=== PATIENT | female | born 1935 | race Caucasian/White ===

== ENCOUNTER → 2017-11-15 16:45 | Outpatient (CLI) | payer MEDICARE, OTHER, SELFPAY ==
[2017-11-15 17:50] LABS: ALB/GLOB Ratio 1.1 RATIO (0.9-2.4); AST(SGOT) 15 U/L (15-37); Alanine Aminotransfer ALT/SGPT 22 U/L (13-56); Albumin, Serum 4.2 g/dL (3.2-5.0); Alkaline Phosphatase 86 U/L (45-117); Anion Gap 8 (5-15); BUN 37 mg/dL (7-18); BUN/Creat Ratio 25.9 RATIO (10-20); Calcium,Total 9.3 mg/dL (8.5-10.1); Chloride 108 mmol/L (98-107); Creatinine, Serum 1.43 mg/dL (0.55-1.02); EST Glomerular Filtration Rate 37 mL/min (>60); Est Glom Filt Rate - Afr Amer 45 mL/min (>60); Ferritin 436 ng/mL (8-252); Globulin 3.7 g/dL (2.2-4.2); Glucose 86 mg/dL (74-106); Potassium 4.4 mmol/L (3.5-5.1); Protein, Total 7.9 g/dL (6.4-8.2); Sodium Level 143 mmol/L (136-145)
[2017-11-15 17:55] LABS: Vitamin D,25 Hydroxy 45.7 ng/mL (29.95-100.01)
== END ==
PROVIDERS: Family Provider Family Medicine; PCP Family Medicine; Visit Provider Family Medicine
DX: E55.9 Vitamin D deficiency, unspecified (principal); D50.9 Iron deficiency anemia, unspecified; N18.3 Chronic kidney disease, stage 3 (moderate)
CPT/HCPCS: 36415; 80053; 82306; 82728

== ENCOUNTER → 2018-02-12 08:51 | Outpatient (CLI) | payer MEDICARE, OTHER, SELFPAY ==
[2018-02-12 12:30] LABS: Albumin, Serum 3.7 g/dL (3.2-5.0); BUN 44 mg/dL (7-18); BUN/Creat Ratio 34.4 RATIO (10-20); Chloride 111 mmol/L (98-107); Creatinine, Serum 1.28 mg/dL (0.55-1.02); EST Glomerular Filtration Rate 42 mL/min (>60); Est Glom Filt Rate - Afr Amer 51 mL/min (>60); Ferritin 407 ng/mL (8-252); Glucose 83 mg/dL (74-106); Phosphorus 3.3 mg/dL (2.5-4.9); Potassium 4.2 mmol/L (3.5-5.1); Sodium Level 146 mmol/L (136-145)
== END ==
PROVIDERS: Family Provider Family Medicine; PCP Family Medicine; Visit Provider Family Medicine
DX: N18.3 Chronic kidney disease, stage 3 (moderate) (principal); D63.1 Anemia in chronic kidney disease
CPT/HCPCS: 36415; 80069; 82728

== ENCOUNTER 2018-08-27 07:28 | Outpatient (RCR) | payer MEDICARE, OTHER, SELFPAY ==
[2018-08-27 10:24] LABS: Absolute Lymphocyte Count 1.23 X10^3/ul (0.83-4.51); Basophil# 0.05 X10^3/uL; Basophil% 1.3 % (0-1); Eosinophil# 0.34 X10^3/uL; Eosinophils% 8.8 % (0-5); Hematocrit 32.6 % (37-47); Hemoglobin 10.4 g/dl (12.0-15.0); Lymphocyte # 1.23 X10^3/ul (4.0); Lymphocyte % 31.9 % (19-41); Mean Corp Hgb Conc 31.9 g/gl (32-36); Mean Corpuscular Volume 87.6 fL (81-99); Monocyte# 0.28 X10^3/uL; Monocyte% 7.3 % (0-10); Neutrophil # 1.95 X10^3/uL (2.7-7.7); Neutrophil % 50.7 % (47-70); Platelet Count 190 K/mm3 (150-450); RBC Distribution Width CV 19.7 % (11.6-14.6); RBC Distribution Width SD 64.2 fl (35.1-43.9); Red Blood Count 3.72 M/mm3 (4.2-5.4); White Blood Count 3.9 K/mm3 (4.4-11.0)
[2018-08-27 10:32] LABS: Differential Indicated SCAN CRITERIA MET; POSITIVE COUNT NO; POSITIVE DIFFERENTIAL NO; POSITIVE MORPHOLOGY YES
== END 2018-08-27 08:00 ==
LOC: MTLAB 07:28
PROVIDERS: Family Provider Family Medicine; PCP Family Medicine; Referring Provider Family Medicine; Visit Provider Family Medicine
DX: K29.70 Gastritis, unspecified, without bleeding (principal)
CPT/HCPCS: 36415; 85025

== ENCOUNTER → 2018-09-19 10:35 | Outpatient (CLI) | payer MEDICARE, OTHER, SELFPAY ==
[2018-09-19 13:03] LABS: ALB/GLOB Ratio 1.1 RATIO (0.9-2.4); AST(SGOT) 13 U/L (15-37); Alanine Aminotransfer ALT/SGPT 18 U/L (13-56); Albumin, Serum 4.1 g/dL (3.2-5.0); Alkaline Phosphatase 75 U/L (45-117); Anion Gap 6 (5-15); BUN 45 mg/dL (7-18); BUN/Creat Ratio 28.3 RATIO (10-20); Calcium,Total 9.5 mg/dL (8.5-10.1); Chloride 107 mmol/L (98-107); Creatinine, Serum 1.59 mg/dL (0.55-1.02); EST Glomerular Filtration Rate 33 mL/min (>60); Est Glom Filt Rate - Afr Amer 40 mL/min (>60); Globulin 3.6 g/dL (2.2-4.2); Glucose 91 mg/dL (74-106); Potassium 4.3 mmol/L (3.5-5.1); Protein, Total 7.7 g/dL (6.4-8.2); Sodium Level 138 mmol/L (136-145)
== END ==
PROVIDERS: Family Provider Family Medicine; PCP Family Medicine; Referring Provider Family Medicine; Visit Provider Family Medicine
DX: N18.3 Chronic kidney disease, stage 3 (moderate) (principal)
CPT/HCPCS: 36415; 80053

== ENCOUNTER 2018-11-13 08:15 | Outpatient (RCR) | payer MEDICARE, OTHER, SELFPAY ==
[2018-11-13 10:47] LABS: Absolute Neutrophil Count 2.1 X10^3/uL (2.0-7.7); Basophil# 0.06 X10^3/uL; Basophil% 1.4 % (0-1); Eosinophil# 0.71 X10^3/uL; Eosinophils% 16.1 % (0-5); Hematocrit 33.5 % (37-47); Hemoglobin 10.5 g/dL (12.0-15.0); Lymphocyte % 27.1 % (19-41); Mean Corp Hgb Conc 31.3 g/dL (32-36); Mean Corpuscular Hgb 28.6 pg (27.0-32.0); Mean Corpuscular Volume 91.3 fL (81-99); Mean Platelet Vol. 12.7 fl (6.2-12.0); Monocyte# 0.31 X10^3/uL; NRBC Flagged by Analyzer 0 % (0-5); Neutrophil % 47.5 % (47-70); Platelet Count 233 K/mm3 (150-450); RBC Distribution Width CV 19.2 % (11.6-14.6); RBC Distribution Width SD 64.7 fl (35.1-43.9); Red Blood Count 3.67 M/mm3 (4.2-5.4); White Blood Count 4.4 K/mm3 (4.4-11.0)
== END 2018-11-13 09:15 | disposition home or self-care (01) ==
LOC: MTLAB 08:15
PROVIDERS: Family Provider Family Medicine; PCP Family Medicine; Referring Provider Family Medicine; Visit Provider Family Medicine
DX: K29.70 Gastritis, unspecified, without bleeding (principal)
CPT/HCPCS: 36415; 85025

== ENCOUNTER → 2019-08-07 14:11 | Outpatient (CLI) | payer MEDICARE, OTHER, SELFPAY ==
[2019-08-07 15:30] LABS: Absolute Lymphocyte Count 0.98 X10^3/uL (0.83-4.51); Absolute Neutrophil Count 3.9 X10^3/uL (2.0-7.7); Basophil# 0.03 X10^3/uL; Basophil% 0.5 % (0-1); Eosinophil# 0.33 X10^3/uL; Hematocrit 33.3 % (37-47); Hemoglobin 10.5 g/dL (12.0-15.0); Immature Platelet Fraction 12.3 % (1.0-7.9); Lymphocyte # 0.98 X10^3/ul (4.0); Lymphocyte % 17.8 % (19-41); Mean Corp Hgb Conc 31.5 g/dL (32-36); Mean Corpuscular Hgb 28.8 pg (27.0-32.0); Mean Corpuscular Volume 91.5 fL (81-99); Mean Platelet Vol. 13.9 fl (6.2-12.0); Monocyte% 3.6 % (0-10); NRBC Flagged by Analyzer 0 % (0-5); Neutrophil # 3.93 X10^3/uL (2.7-7.7); Neutrophil % 71.2 % (47-70); POSITIVE MORPHOLOGY YES; Platelet Count 199 K/mm3 (150-450); RBC Distribution Width CV 19.4 % (11.6-14.6); Red Blood Count 3.64 M/mm3 (4.2-5.4); Reticulocyte Count 0.85 % (0.5-1.5); White Blood Count 5.5 K/mm3 (4.4-11.0)
[2019-08-07 15:31] LABS: Differential Indicated SCAN CRITERIA MET
[2019-08-07 16:00] LABS: ALB/GLOB Ratio 1.2 RATIO (0.9-2.4); AST(SGOT) 12 U/L (15-37); Alanine Aminotransfer ALT/SGPT 20 U/L (13-56); Albumin, Serum 4.1 g/dL (3.2-5.0); Alkaline Phosphatase 58 U/L (45-117); Anion Gap 7 (5-15); BUN 49 mg/dL (7-18); BUN/Creat Ratio 27.7 RATIO (10-20); Calcium,Total 9.5 mg/dL (8.5-10.1); Chloride 109 mmol/L (98-107); Cholesterol 119 mg/dL (200); Creatinine, Serum 1.77 mg/dL (0.55-1.02); EST Glomerular Filtration Rate 29 mL/min (>60); Est Glom Filt Rate - Afr Amer 35 mL/min (>60); Ferritin 425 ng/mL (8-252); Globulin 3.4 g/dL (2.2-4.2); Glucose 107 mg/dL (74-106); High Density Lipoprotein 64 mg/dL; Iron 85 ug/dL (50-170); Iron Binding Capacity,Total 235 ug/dL (250-450); Potassium 3.9 mmol/L (3.5-5.1); Protein, Total 7.5 g/dL (6.4-8.2); Sodium Level 144 mmol/L (136-145)
[2019-08-07 16:58] LABS: Anisocytosis 1+; Platelet Estimate ADEQUATE (ADEQ); Red Cell Morphology N CHROM NORMAL (NORM C&C)
[2019-08-07 17:00] LABS: Acanthocytes 1+
[2019-08-08 09:13] LABS: CRP < 2.90 mg/L (0.0-3.0)
[2019-08-08 09:18] LABS: Erythrocyte Sedimentation Rate 8 mm/hr (0-30)
[2019-08-09 14:07] LABS: PROEL- A/G Ratio 1.3 (0.7-1.7); PROEL- Alpha-1 Globulin 0.3 g/dL (0.0-0.4); PROEL- Alpha-2 Globulin 0.9 g/dL (0.4-1.0); PROEL- Gamma Globulin 0.9 g/dL (0.4-1.8)
== END ==
PROVIDERS: PCP Family Medicine; Referring Provider Family Medicine; Visit Provider Family Medicine
DX: I50.32 Chronic diastolic (congestive) heart failure (principal); D50.9 Iron deficiency anemia, unspecified
CPT/HCPCS: 36415; 80053; 82465; 82728; 83540; 83550; 83718; 84165; 85025; 85045; 85652; 86140

== ENCOUNTER → 2019-10-09 08:45 | Outpatient (CLI) | payer MEDICARE, OTHER, SELFPAY ==
[2019-09-26 14:14] VITALS: BMI 27.1
[2019-10-09 10:55] LABS: T4 Total, Thyroxin 11.4 ug/dL (4.8-13.9); Thyroid Stim Hormone (TSH) 1.56 uIU/mL (0.358-3.74)
== END ==
PROVIDERS: PCP Family Medicine; Referring Provider Family Medicine; Visit Provider Internal Medicine Cardiovascular Disease
DX: I50.32 Chronic diastolic (congestive) heart failure (principal)
CPT/HCPCS: 36415; 84436; 84443

== ENCOUNTER → 2019-10-22 07:57 | Outpatient (CLI) | payer MEDICARE, OTHER, SELFPAY ==
[2019-09-26 14:14] VITALS: BMI 27.1
--- NOTE | 2019-10-22 07:59 | ECHOD_ITS ---
Reason For Study: Atrial Fib-Flutter Procedure This was a 2D Doppler, Color Flow transthoracic echocardiogram. The study was technically difficult. Exam performed in department. Left Ventricle Borderline enlarged left ventricle. Moderate global left ventricular systolic dysfunction. The estimated ejection fraction is 30 %. There is evidence of diastolic dysfunction. Right Ventricle Normal RV size. Normal systolic function. Atria Normal left atrium. Normal right atrium. Probable chiari network. No doppler evidence for ASD. Mitral Valve There is mild mitral annular calcification. Normal mitral valve. Moderate (2+) mitral valve insufficiency. Tricuspid Valve Normal tricuspid valve. Moderate (2+) tricuspid valve insufficiency. Right ventricular systolic pressure estimated to be 36 mmHg. Aortic Valve Trisinus/trileaflet aortic valve. Mild focal aortic valve calcification. Trivial aortic valve insufficiency. Pulmonic Valve The pulmonic valve is not well visualized. Trivial pulmonic valve insufficiency. Great Vessels Normal sized aortic root. Pericardium/Pleural No pericardial effusion. MMode/2D Measurements & Calculations LVIDd: 5.0 cm IVSd: 1.3 cm Ao root diam: 2.7 cm LVIDs: 3.6 cm LVPWd: 0.85 cm LA dimension: 4.4 cm RVDd: 3.2 cm FS: 28.5 % LAV(MOD-bp): 53.4 ml LA A4 area: 17.0 cm2 RA A4 area: 15.0 cm2 LAV(MOD-bp) Indexed: 31.9 ml/m2 LAV(MOD-sp2): 58.9 ml LAV(MOD-sp4): 47.5 ml Time Measurements MV dec time: 0.25 sec Doppler Measurements & Calculations MV E max daniel: 93.2 cm/sec Lat Peak E' Daniel: 5.2 cm/sec Med Peak E' Daniel: 4.8 cm/sec MV A max daniel: 129.0 cm/sec E/E' lat: 17.8 E/E' med: 19.5 MV E/A: 0.72 MV V2 max: 151.0 cm/sec MV P1/2t max daniel: 107.2 cm/sec Ao V2 max: 181.9 cm/sec MV max P.1 mmHg MV P1/2t: 81.7 msec Ao max P.2 mmHg MV V2 mean: 78.3 cm/sec MV dec slope: 384.5 cm/sec2 MV mean P.9 mmHg MVA(P1/2t): 2.7 cm2 MV V2 VTI: 37.0 cm LV V1 max: 84.1 cm/sec MR max daniel: 596.4 cm/sec PA V2 max: 78.0 cm/sec LV V1 max P.8 mmHg MR max P.3 mmHg MR mean daniel: 469.1 cm/sec MR mean P.4 mmHg MR VTI: 237.9 cm TR max daniel: 287.6 cm/sec TR max P.1 mmHg Interpretation Summary The study was technically difficult. Borderline enlarged left ventricle. Moderate global left ventricular systolic dysfunction. The estimated ejection fraction is 30 %. Probable chiari network. There is mild mitral annular calcification. Moderate (2+) mitral valve insufficiency. Moderate (2+) tricuspid valve insufficiency. Mild focal aortic valve calcification. Trivial aortic valve insufficiency. Trivial pulmonic valve insufficiency. Right ventricular systolic pressure estimated to be 36 mmHg. There is evidence of diastolic dysfunction. Ordering Physician: Jose Limon Referring Physician: Ayden Fritz Performed By: Santo Mcneil RCS
== END ==
PROVIDERS: PCP Family Medicine; Referring Provider Internal Medicine Cardiovascular Disease; Visit Provider Internal Medicine Cardiovascular Disease
DX: I48.91 Unspecified atrial fibrillation (principal); I48.92 Unspecified atrial flutter; I50.32 Chronic diastolic (congestive) heart failure
CPT/HCPCS: 93306

== ENCOUNTER → 2019-11-12 06:10 | Outpatient (CLI) | payer MEDICARE, OTHER, SELFPAY ==
[2019-09-26 14:14] VITALS: BMI 27.1
--- NOTE | 2019-11-12 13:19 | STRESSREP ---
Stress Test Report Date: 11-12-2019 Procedure: Pharmacologic stress nuclear imaging study Indications: Atrial fibrillation; abnormal ECG; abnormal transthoracic echocardiogram; CHF Consent: Per the patient Procedure: The patient underwent pharmacologic (Regadenoson) evaluation with a peak heart rate of 99 beats per minute (72 %predicted maximal heart rate) and a peak blood pressure of 142/80 mmHg. 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 The peak pharmacologic ECG demonstrated no obvious ECG changes. There was a rare PVC pretest and in recovery. There was no complaint of chest discomfort during pharmacologic infusion or recovery. The examination was discontinued secondary to completion of protocol. Impression: 1. Pharmacologic (Regadenoson) evaluation 2. 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 3. Is a rare PVC pretest and in recovery. 4. Nuclear images pending Myocardial perfusion imaging study: Technique: The patient was injected with 11.9 millicuries of technetium 99m Cardiolite and subsequently rest SPECT Cardiolite nuclear imaging was obtained in the horizontal long, vertical long, and short axis views. The patient underwent pharmacologic (Regadenoson) evaluation with a peak heart rate of 99 beats per minute (72 % percent predicted maximal heart rate) and a peak blood pressure of 142/80 mmHg. The patient was injected with 33.1 millicuries of technetium 99m Cardiolite and subsequently stress SPECT Cardiolite nuclear imaging was obtained in the horizontal long, vertical long, and short axis views. A gated Cardiolite study at peak stress was obtained. Interpretation: Rest and stress SPECT Cardiolite nuclear imaging status post realignment, normalization, and attenuation correction demonstrate diminished absence of myocardial perfusion/tracer uptake in the apical areas without significant change between rest and stress. There is diminished end systolic thickening and brightening in the mid to distal anterior, anteroseptal, lateral, inferior, and apical segments. The gated Cardiolite study demonstrates diminished myocardial thickening and inward wall motion in the aforementioned areas. The reported LVEF is 36 %. Impression: 1. Rest and stress SPECT Cardiolite nuclear imaging demonstrate myocardial perfusion changes potentially compatible with an area of previous myocardial injury/infarction involving the apical regions with no myocardial perfusion changes considered diagnostic for associated stress-induced myocardial ischemia. 2. The gated Cardiolite study reports an LVEF of 36 %. This note was generated with [employer] dictation software. It may contain incorrect words, spelling, and punctuation that were not noted in checking the note before signing.
== END ==
PROVIDERS: PCP Family Medicine; Referring Provider Internal Medicine Cardiovascular Disease; Visit Provider Internal Medicine Cardiovascular Disease
DX: R93.1 Abnormal findings on diagnostic imaging of heart and coronary circulation (principal); I50.32 Chronic diastolic (congestive) heart failure; I45.10 Unspecified right bundle-branch block; I48.91 Unspecified atrial fibrillation
CPT/HCPCS: 78452; 93017; A9500; A4216; J2785

== ENCOUNTER → 2019-11-14 12:55 | Outpatient (CLI) | payer MEDICARE, OTHER, SELFPAY ==
[2019-09-26 14:14] VITALS: BMI 27.1
--- NOTE | 2019-11-14 13:07 | RAD_ITS ---
STUDY: X-RAY CHEST REASON FOR EXAM: Female, 84 years old. retirement use amiodarone, no current chest complaints TECHNIQUE: PA and lateral views of the chest. COMPARISON: Prior study of 08/27/2012 FINDINGS: The lungs are clear and expanded. There is a small calcified granuloma of the left midlung field. There is no demonstrated pleural abnormality. There is borderline cardiomegaly. Normal mediastinum and sharon. Normal visualized pulmonary arteries. There are calcified plaques of the aortic arch. Normal visualized thoracic spine. Normal visualized ribs, clavicles, and shoulders. There is no demonstrated abnormality of the visualized soft tissue structures of the upper abdomen. RAD/Chest PA and Lateral IMPRESSION: Borderline heart size. Small calcified granuloma of the left midlung field. Calcified plaques of the aortic arch. No acute cardiopulmonary disease process is seen. Findings are similar to the previous study. Electronically Signed: Oscar Pugh MD at 23:57 EDT , Service support ,
--- NOTE | 2019-11-15 12:33 | PFT ---
INTRODUCTION: The patient is an 84-year-old female that presents for pulmonary function studies due to high risk medication use. Respiratory therapy reports good patient effort. Bronchodilators were used during testing. INTERPRETATION: Forced expiration spirometry demonstrates no evidence of a large airways obstructive ventilatory defect. There was no significant response to aerosolized bronchodilators, based upon strict ATS criteria. Spirograms are of fair quality and plateau normally. Body plethysmography was performed and reveals lung volumes to be within normal limits. Diffusing capacity by single breath CO is also within normal limits. IMPRESSION: Grossly normal pulmonary function studies.
== END ==
PROVIDERS: PCP Family Medicine; Referring Provider Internal Medicine Cardiovascular Disease; Visit Provider Internal Medicine Cardiovascular Disease
DX: I50.32 Chronic diastolic (congestive) heart failure (principal); I48.91 Unspecified atrial fibrillation; Z79.899 Other long term (current) drug therapy
CPT/HCPCS: 71046; 94060; 94726; 94729

== ENCOUNTER → 2019-12-05 10:35 | Outpatient (CLI) | payer MEDICARE, OTHER, SELFPAY ==
[2019-09-26 14:14] VITALS: BMI 27.1
[2019-12-05 12:05] LABS: Anion Gap 8 (5-15); BUN 40 mg/dL (7-18); Calcium,Total 9.6 mg/dL (8.5-10.1); Chloride 111 mmol/L (98-107); Creatinine, Serum 2.66 mg/dL (0.55-1.02); EST Glomerular Filtration Rate 18 mL/min (>60); Est Glom Filt Rate - Afr Amer 22 mL/min (>60); Glucose 101 mg/dL (74-106); Potassium 4.4 mmol/L (3.5-5.1); Sodium Level 142 mmol/L (136-145)
== END ==
PROVIDERS: PCP Family Medicine; Referring Provider Family Medicine; Visit Provider Internal Medicine Cardiovascular Disease
DX: I50.32 Chronic diastolic (congestive) heart failure (principal); I48.91 Unspecified atrial fibrillation
CPT/HCPCS: 36415; 80048

== ENCOUNTER → 2019-12-11 09:15 | Outpatient (CLI) | payer MEDICARE, OTHER, SELFPAY ==
[2019-09-26 14:14] VITALS: BMI 27.1
[2019-12-11 12:51] LABS: Erythrocyte Sedimentation Rate 22 mm/hr (0-30)
[2019-12-12 20:07] LABS: PROEL- A/G Ratio 1.2 (0.7-1.7); PROEL- Albumin 3.7 g/dL (2.9-4.4); PROEL- Alpha-1 Globulin 0.4 g/dL (0.0-0.4); PROEL- Beta Globulin 0.9 g/dL (0.7-1.3); PROEL- Gamma Globulin 0.7 g/dL (0.4-1.8); PROEL- Globulin, Total 3.1 g/dL (2.2-3.9); PROEL- TOTAL PROTEIN 6.8 g/dL (6.0-8.5)
== END ==
PROVIDERS: PCP Family Medicine; Referring Provider Family Medicine; Visit Provider Family Medicine
DX: R79.89 Other specified abnormal findings of blood chemistry (principal)
CPT/HCPCS: 36415; 84165; 85652; 86140

== ENCOUNTER → 2019-12-17 11:15 | Outpatient (CLI) | payer MEDICARE, OTHER, SELFPAY ==
[2019-09-26 14:14] VITALS: BMI 27.1
[2019-12-17 15:38] LABS: Hematocrit 30.1 % (37-47); Hemoglobin 9.7 g/dL (12.0-15.0); Mean Corp Hgb Conc 32.2 g/dL (32-36); Mean Corpuscular Hgb 28.4 pg (27.0-32.0); POSITIVE COUNT YES; POSITIVE MORPHOLOGY YES; RBC Distribution Width CV 19.9 % (11.6-14.6); RBC Distribution Width SD 63.9 fl (35.1-43.9); Red Blood Count 3.42 M/mm3 (4.2-5.4); White Blood Count 9.9 K/mm3 (4.4-11.0)
[2019-12-17 16:11] LABS: Differential Indicated MANUAL DIFF; Platelet Count 32 K/mm3 (150-450)
[2019-12-17 16:12] LABS: Eosinophil 1 % (0-5); Lymphocyte 56 % (19-41); Monocyte 5 % (0-10); Neutrophil-Band 6 % (0-5); Neutrophil-Segmented 32 % (47-70); Nucleated Red Bld Cells,Manual 2 % (0-5); Total Cells Counted 100 (MANUAL DIFF)
[2019-12-17 16:13] LABS: Platelet Estimate MKD DEC (ADEQ); Red Cell Morphology NORM C+C NORMAL (NORM C&C)
[2019-12-17 16:15] LABS: Absolute Neutrophil Count 3.8 X10^3/uL (2.0-7.7)
[2019-12-18 12:19] LABS: Pathologist Review Reviewed
== END ==
PROVIDERS: PCP Family Medicine; Referring Provider Family Medicine; Visit Provider Family Medicine
DX: K92.1 Melena (principal); R19.7 Diarrhea, unspecified
CPT/HCPCS: 36415; 85025; 87493; 87506

== ENCOUNTER 2019-12-19 09:43 | Inpatient (IN) | payer MEDICARE, OTHER, SELFPAY ==
[2019-09-26 14:14] VITALS: BMI 27.1
[2019-12-19 09:45] VITALS: BP 139/83; PULSE 87; RESP 17; TEMP 36.4; O2SAT 98; BMI 25.4
--- NOTE | 2019-12-19 10:15 | ED.DCSUM_ITS ---
History of Present Illness Chief Complaint: Abn Labs Detail of Chief Complaint: rising creatinine Informant: Patient, Significant Other, PCP Onset: Weeks - 1 Context: Gradual Onset Quality: malaise/weakness Location: all over Current Severity: Moderate Maximum Severity: Moderate Worsened by: n/a Relieved by: n/a Associated Symptoms: vaginal bleeding, diarrhea Narrative: Patient started having diarrhea around 3 weeks ago. Her PCP ran some tasks that were reportedly negative, including C. difficile, put her on some antidiarrheals which helped. That is improved. No nausea, vomiting, abdominal pain. No fevers or chills. She had been followed by her doctor and her sales and marketing engineer Dr. Augustin, who sent her here today, because she had been having repeat labs since her creatinine had gone from 1.5 last year to 2 last week, she was reevaluated again yesterday and her creatinine went up to 6.3 so she was sent to the emergency department for admission. She does not follow with a graduate assistant athletic trainer for any reason. She has been urinating and actually a little more than usual, but without any pain or hematuria. She was on apixaban for stroke prophylaxis given her atrial fibrillation, and that was discontinued recently because of her vaginal bleeding that has spontaneously occurred for about the past week, and since discontinuing the apixaban, her bleeding is still present but much improved. Dr. Diaz stated that she has ITP and low platelets, based on her platelet count recently, he does not recommend transfusion now, but she may require it if she continues to bleed. - Past Medical History (1) Chronic ITP (idiopathic thrombocytopenic purpura) Status: Chronic (2) Atrial fibrillation Status: Chronic (3) Benign essential HTN Status: Chronic (4) CKD (chronic kidney disease) Status: Chronic (5) Chronic diastolic heart failure Status: Chronic (6) Gastroesophageal reflux disease Status: Chronic Past Medical History - Allergies and Home Meds Allergies/Adverse Reactions: Allergies Penicillins Allergy (Unknown, Verified 12/19/19 09:44) Unknown Sulfa (Sulfonamide Antibiotics) Adverse Reaction (Unknown, Verified 12/19/19 09:44) Unknown Primary Care Physician: Ayden Fritz MD [Primary Care Provider] - Doctors: Joe - matt; Ashly - cardiology Surgical History: herniorrhaphy, carpal tunnel syndrome, vein stripping of the legs Lives: Spouse/ Significant Other Smoking Status: Never smoker Review of Systems General: Reports: Malaise. Denies: Chills, Fever, Sweats Eyes: Denies: Visual changes - bilaterally, Diplopia ENT: Denies: Bilateral ear pain, Rhinorrhea, Sore throat Cardiovascular: Denies: Chest pain, Palpitations Respiratory: Denies: Dyspnea, Cough, Dyspnea on exertion Gastrointestinal: Reports: Diarrhea. Denies: Abdominal pain, Nausea, Vomiting, Melena, Hematochezia Genitourinary: Reports: Frequency, - - vaginal bleeding. Denies: Dysuria, Hematuria Musculoskeletal: Reports: Swelling - chronic both ankles, unchanged. Denies: Myalgias, Back pain, Extremity Pain Skin: Denies: Rash, Wounds Neurological: Denies: Headache, Weakness, Numbness Physical Exam Vital Signs/Narrative: Vital Signs Temp Pulse Resp BP Pulse Ox 12/19/19 09:45 97.6 F L 87 17 139/83 H 98 Inital Vital Signs reviewed: Yes General: Well nourished, Well developed, No Acute Distress Head: Normocephalic, Atraumatic Eyes: Perrl, EOMI ENT: Moist mucous membranes, No rhinorrhea Neck: Supple, Nontender, No lymphadenopathy Cardiovascular: Regular rate, Regular rhythm, Murmur - systolic Respiratory: No distress, CTA bilaterally, Chest nontender Abdomen: Soft, Nontender, Nondistended, Normal bowel sounds. Negative for: Pulsatile mass Back: Nontender, Normal Inspection Extremities: Nontender, Edema - 1+ BLE to midshin, nonpitting, symmetric. Negative for: Calf Tenderness Skin: Normal color, No rash, No Trauma Neurological: Alert, Oriented x3, Cranial nerves II-XII grossly intact, Normal Strength, Normal Sensation, Normal Gait Psychological: Normal affect, Normal Mood Diagnostic/Tx/Re-eval Laboratory Tests 12/19/19 12/19/19 12/19/19 Range/Units 11:15 10:25 10:25 WBC (4.4-11.0) K/mm3 RBC (4.2-5.4) M/mm3 Hgb (12.0-15.0) g/dL Hct (37-47) % MCV (81-99) fL MCH (27.0-32.0) pg MCHC (32-36) g/dL RDW Std Deviation (35.1-43.9) fl RDW Coeff of Brody (11.6-14.6) % Plt Count (150-450) K/mm3 Neut % (Auto) Absolute Neuts (auto) (2.0-7.7) X10^3/uL Absolute Lymphs (auto) (0.83-4.51) X10^3/uL Total Counted (MANUAL DIFF) Neutrophils % (Manual) (47-70) % Lymphocytes % (Manual) (19-41) % Monocytes % (Manual) (0-10) % Eosinophils % (Manual) (0-5) % Basophils % (Manual) (0-1) % Metamyelocytes % (0-1) % Myelocytes % (0-0) Blast Cells % (0-0) % Diff Path Review Atypical Lymphocytes % Platelet Estimate (ADEQ) RBC Morphology (NORM C&C) NORMAL Microcytosis Macrocytosis Acanthocytes (Spur) Sodium 144 (136-145) mmol/L Potassium 3.6 (3.5-5.1) mmol/L Chloride 114 H (98-107) mmol/L Carbon Dioxide 16.0 L (21.0-32.0) mmol/L Anion Gap 14 (5-15) BUN 88 H (7-18) mg/dL Creatinine 7.01 H (0.55-1.02) mg/dL Estim Creat Clear Calc 4.94 ml/min Est GFR (MDRD) Af Amer 7 L (>60) mL/min Est GFR (MDRD) Non-Af 6 L (>60) mL/min BUN/Creatinine Ratio 12.6 (10-20) RATIO Glucose 110 H (74-106) mg/dL Calcium 9.7 (8.5-10.1) mg/dL Total Bilirubin 0.30 (0.20-1.00) mg/dL AST 37 (15-37) U/L ALT 23 (13-56) U/L Alkaline Phosphatase 75 (45-117) U/L Total Protein 7.1 (6.4-8.2) g/dL Albumin 3.6 (3.2-5.0) g/dL Globulin 3.5 (2.2-4.2) g/dL Albumin/Globulin Ratio 1.0 (0.9-2.4) RATIO Urine Color Straw (Yellow) Urine Clarity Cloudy (Clear) Urine pH 5.0 (5.0 - 8.0) Ur Specific Troy 1.015 (1.002-1.030) Urine Protein 100 H (Negative) mg/dl Urine Glucose (UA) Normal (Normal) mg/dl Urine Ketones Negative (Negative) mg/dl Urine Occult Blood 250 H (Negative) /ul Urine Nitrite Positive H (Negative) Urine Bilirubin Negative (Negative) mg/dL Urine Urobilinogen Normal (Normal) mg/dl Ur Leukocyte Esterase 500 H (Negative) /ul Urine RBC > 100 SEEN (0-5) /hpf Urine WBC >100 SEEN (0-5) /hpf Ur Squamous Epith Cells 0-5 SEEN (5-10) /hpf Ur Renal Epithelial Cell 0-5 SEEN (0-5) /hpf Urine Bacteria 4+ (None Seen) /hpf Fine Granular Casts 0-5 SEEN (0-5) /lpf Urine Mucus 0 SEEN (<or=2+) /hpf Blood Type A POSITIVE Antibody Screen NEGATIVE 12/19/19 Range/Units 10:25 WBC 7.7 (4.4-11.0) K/mm3 RBC 3.09 L (4.2-5.4) M/mm3 Hgb 8.7 L (12.0-15.0) g/dL Hct 27.7 L (37-47) % MCV 89.6 (81-99) fL MCH 28.2 (27.0-32.0) pg MCHC 31.4 L (32-36) g/dL RDW Std Deviation 66.0 H (35.1-43.9) fl RDW Coeff of Brody 20.0 H (11.6-14.6) % Plt Count 26 L* (150-450) K/mm3 Neut % (Auto) Not Reportable Absolute Neuts (auto) 2.0 (2.0-7.7) X10^3/uL Absolute Lymphs (auto) 4.39 (0.83-4.51) X10^3/uL Total Counted 100 (MANUAL DIFF) Neutrophils % (Manual) 26 L (47-70) % Lymphocytes % (Manual) 57 H (19-41) % Monocytes % (Manual) 1 (0-10) % Eosinophils % (Manual) 4 (0-5) % Basophils % (Manual) 1 (0-1) % Metamyelocytes % 3 H (0-1) % Myelocytes % 4 H (0-0) Blast Cells % 4 H* (0-0) % Diff Path Review May foll Atypical Lymphocytes 1+ % Platelet Estimate MKD DEC (ADEQ) RBC Morphology N CHROM (NORM C&C) NORMAL Microcytosis 2+ Macrocytosis 1+ Acanthocytes (Spur) 2+ Sodium (136-145) mmol/L Potassium (3.5-5.1) mmol/L Chloride (98-107) mmol/L Carbon Dioxide (21.0-32.0) mmol/L Anion Gap (5-15) BUN (7-18) mg/dL Creatinine (0.55-1.02) mg/dL Estim Creat Clear Calc ml/min Est GFR (MDRD) Af Amer (>60) mL/min Est GFR (MDRD) Non-Af (>60) mL/min BUN/Creatinine Ratio (10-20) RATIO Glucose (74-106) mg/dL Calcium (8.5-10.1) mg/dL Total Bilirubin (0.20-1.00) mg/dL AST (15-37) U/L ALT (13-56) U/L Alkaline Phosphatase (45-117) U/L Total Protein (6.4-8.2) g/dL Albumin (3.2-5.0) g/dL Globulin (2.2-4.2) g/dL Albumin/Globulin Ratio (0.9-2.4) RATIO Urine Color (Yellow) Urine Clarity (Clear) Urine pH (5.0 - 8.0) Ur Specific Troy (1.002-1.030) Urine Protein (Negative) mg/dl Urine Glucose (UA) (Normal) mg/dl Urine Ketones (Negative) mg/dl Urine Occult Blood (Negative) /ul Urine Nitrite (Negative) Urine Bilirubin (Negative) mg/dL Urine Urobilinogen (Normal) mg/dl Ur Leukocyte Esterase (Negative) /ul Urine RBC (0-5) /hpf Urine WBC (0-5) /hpf Ur Squamous Epith Cells (5-10) /hpf Ur Renal Epithelial Cell (0-5) /hpf Urine Bacteria (None Seen) /hpf Fine Granular Casts (0-5) /lpf Urine Mucus (<or=2+) /hpf Blood Type Antibody Screen - Medical Decision Making Patient is clinically and hemodynamically stable here in the emergency department. Labs as above are noted. Urine suspicious for infection so that was cultured she was given an empiric dose of IV Rocephin. She does not need any emergent transfusions at this time, plan is for admission to the hospital for further treatment and evaluation of her renal failure. After discussing with Dr. Marie, he requests an abdominal CT to look at her kidneys, he will follow-up on the results of that so the patient will get the scan and go up to the floor when her bed is ready. ED Disposition - Plan for ED Patient: Disposition: Acute Care Hospital [facility] Diagnosis: Postmenopausal vaginal bleeding, Acute on chronic renal failure, Acute diarrhea, Thrombocytopenia, UTI (urinary tract infection) Referrals: Ayden Fritz MD [Primary Care Provider] -
[2019-12-19 10:30] VITALS: BP 131/65; PULSE 90; RESP 16; O2SAT 97
[2019-12-19] MEDS: 0.9% Normal Saline 1,000 ML 150 ML IV (10:33)
[2019-12-19 10:51] LABS: Hematocrit 27.7 % (37-47); Hemoglobin 8.7 g/dL (12.0-15.0); Mean Corp Hgb Conc 31.4 g/dL (32-36); Mean Corpuscular Hgb 28.2 pg (27.0-32.0); Mean Corpuscular Volume 89.6 fL (81-99); POSITIVE COUNT YES; POSITIVE MORPHOLOGY YES; Red Blood Count 3.09 M/mm3 (4.2-5.4); White Blood Count 7.7 K/mm3 (4.4-11.0)
[2019-12-19 10:54] LABS: Differential Indicated MANUAL DIFF
[2019-12-19 11:02] LABS: AST(SGOT) 37 U/L (15-37); Alanine Aminotransfer ALT/SGPT 23 U/L (13-56); Albumin, Serum 3.6 g/dL (3.2-5.0); Alkaline Phosphatase 75 U/L (45-117); Anion Gap 14 (5-15); BUN 88 mg/dL (7-18); BUN/Creat Ratio 12.6 RATIO (10-20); Calcium,Total 9.7 mg/dL (8.5-10.1); Chloride 114 mmol/L (98-107); Creatinine, Serum 7.01 mg/dL (0.55-1.02); EST Glomerular Filtration Rate 6 mL/min (>60); Est Glom Filt Rate - Afr Amer 7 mL/min (>60); Estimated Creatinine Clearance 4.94 ml/min; Globulin 3.5 g/dL (2.2-4.2); Glucose 110 mg/dL (74-106); Potassium 3.6 mmol/L (3.5-5.1); Protein, Total 7.1 g/dL (6.4-8.2); Sodium Level 144 mmol/L (136-145)
[2019-12-19 11:08] LABS: Platelet Count 26 K/mm3 (150-450)
[2019-12-19 11:12] LABS: Basophil 1 % (0-1); Blast 4 % (0-0); Eosinophil 4 % (0-5); Lymphocyte 57 % (19-41); Metamyelocyte 3 % (0-1); Monocyte 1 % (0-10); Myelocyte 4 (0-0); Neutrophil-Segmented 26 % (47-70); Total Cells Counted 100 (MANUAL DIFF)
--- NOTE | 2019-12-19 11:14 | NURSING ---
Critical PLT level reported to Dr. Zambrano
[2019-12-19 11:16] LABS: Acanthocytes 2+; Macrocytosis 1+; Microcytosis 2+; Platelet Estimate MKD DEC (ADEQ); Red Cell Morphology N CHROM NORMAL (NORM C&C)
[2019-12-19 11:17] LABS: Atypical Lymphocyte 1+ %
[2019-12-19 11:18] LABS: Lymphocyte # 4.39 X10^3/ul (4.0)
[2019-12-19 11:19] LABS: Absolute Lymphocyte Count 4.39 X10^3/uL (0.83-4.51)
[2019-12-19 11:24] LABS: Mucous, Urine 0 SEEN /hpf (<or=2+)
[2019-12-19 11:31] LABS: Color, Urine Straw (Yellow); Glucose, Dipstick Normal (Normal); Ketone-Dipstick Negative (Negative); Leukocyte Esterase-Dipstick 500 /ul (Negative); Nitrite-Dipstick Positive (Negative); Occult Blood-Urine 250 /ul (Negative); Protein-Dipstick 100 mg/dl (Negative); Specific Gravity, Urine 1.015 (1.002-1.030); Urine Bilirubin Dipstick Negative (Negative); Urine Clarity Cloudy (Clear); Urine Urobilinogen Normal (Normal)
[2019-12-19 11:41] LABS: Renal Epithelial Cells 0-5 SEEN /hpf (0-5); Squamous Epithelial Cells - UA 0-5 SEEN /hpf (5-10)
[2019-12-19 11:42] LABS: Red Blood Cells-Urine > 100 SEEN /hpf (0-5)
[2019-12-19 11:44] LABS: Bacteria 4+ /hpf (None Seen); White Blood Cells >100 SEEN /hpf (0-5)
[2019-12-19 11:45] LABS: Fine Granular Cast- Urine 0-5 SEEN /lpf (0-5)
--- NOTE | 2019-12-19 11:58 | NURSING ---
MED SURG TERELETSKY RENAL FAILURE, UTI, ITP
[2019-12-19 12:00] VITALS: BP 128/60; PULSE 86; RESP 18; O2SAT 96
--- NOTE | 2019-12-19 12:07 | US_ITS ---
STUDY: RENAL ULTRASOUND - COMPLETE REASON FOR EXAM: Female, 84 years old. Renal failure TECHNIQUE: Ultrasound evaluation of the kidneys was performed with real-time and static garcia-scale imaging. COMPARISON: None. FINDINGS: RIGHT KIDNEY: Normal location of the right kidney, which is normal in size. The right kidney measures 8.1 cm x 3.4 cm x 3.7 cm. There is a normal cortex of the right kidney. The renal cortex measures 1.1 cm. 2 small intrarenal calculi are seen. The larger measures 3 mm x 4 mm x 3 mm. There are no right renal calculi. There is no right hydronephrosis. DISTAL RIGHT URETER: There is non-visualization of the distal right ureter. There is no demonstrated right ureterovesical junction calculus. There is no demonstrated right ureteral jet. LEFT KIDNEY: Normal location of the left kidney, which is normal in size. The left kidney measures 9.6 cm x 2.9 cm x 3.3 cm. There is a normal cortex of the left kidney. The renal cortex measures 1.4 cm. There is no left renal mass or cyst. There are no left renal calculi. There is no left hydronephrosis. DISTAL LEFT URETER: There is non-visualization of the distal left ureter. There is no demonstrated left ureterovesical junction calculus. There is no demonstrated left ureteral jet. BLADDER: The distended urinary bladder has a volume of 68 ml. There is a normal wall thickness of the distended urinary bladder. There is no demonstrated mass within the urinary bladder. There are no demonstrated bladder calculi. Incidental note is made of cholelithiasis. Calcified splenic granulomas. US/Kidney and Bladder IMPRESSION: There are 2 small right intrarenal calculi. Electronically Signed: Thom Madrigal, at 13:39 EDT , Service support ,
[2019-12-19 12:57] VITALS: BP 128/60; PULSE 82; RESP 18; TEMP 36.6; O2SAT 98
[2019-12-19] MEDS: Ceftriaxone 1 GM/50 ML BAG IV (12:57)
[2019-12-19 13:27] VITALS: BMI 25.2
--- NOTE | 2019-12-19 15:53 | PCM.HP.STD ---
Problem List (1) Acute on chronic renal failure Status: Acute (2) Chronic ITP (idiopathic thrombocytopenic purpura) Status: Chronic (3) Chronic diastolic heart failure Status: Chronic (4) CKD (chronic kidney disease) Status: Chronic (5) Atrial fibrillation Status: Chronic (6) Gastroesophageal reflux disease Status: Chronic (7) Benign essential HTN Status: Chronic History of Present Illness Date of Admission: 12/19/19 Chief Complaint: abnormal labs The patient is a 84 year old F with history of atrial fibrillation, ITP, hypertension, hyperlipidemia who presents to the ER with abnormal labs - abnormal kidney function. Dr. Diaz sent her, whom treats her for ITP. She has markedly elevated Creatine. She reports she has had diarrhea every morning for about 2 weeks - watery no blood. Today was the first morning she did not have watery diarrhea. No abdominal pain. She appears to also have a UTI per UA, and does admit that she has had increased urinary frequency. She denies dysuria. She denies flank pain. No fever/chills. also of note she was recently taken off eliquis which she takes for afib due to vaingal bleeding which has since resolved. [] Past Medical History Past Medical History (Chronic Problems): Chronic Problems (Last Updated 09/25/19 @ 18:08 by Kimberly Blackmon) Chronic ITP (idiopathic thrombocytopenic purpura) (Chronic) Chronic diastolic heart failure (Chronic) CKD (chronic kidney disease) (Chronic) Atrial fibrillation (Chronic) Gastroesophageal reflux disease (Chronic) Benign essential HTN (Chronic) Medical History: Medical History (Last Updated 09/25/19 @ 18:08 by Kimberly Blackmon) Chronic diastolic heart failure (Chronic) I50.32 CKD (chronic kidney disease) (Chronic) N18.9 Left anterior fascicular block (LAFB) (Acute) I44.4 RBBB (right bundle branch block) (Acute) I45.10 Atrial fibrillation (Chronic) I48.91 Gastroesophageal reflux disease (Chronic) K21.9 Benign essential HTN (Chronic) I10 CVA (cerebral vascular accident) I63.9 Hx of cardiac arrhythmia Z86.79 Uterine prolapse N81.4 Allergies Penicillins Allergy (Unknown, Verified 12/19/19 09:44) Unknown Sulfa (Sulfonamide Antibiotics) Adverse Reaction (Unknown, Verified 12/19/19 09:44) Unknown levaquin Allergy (Uncoded 12/19/19 14:08) PT UNSURE OF REACTION Home Medications: Ambulatory Orders Medication Instructions Recorded amiodarone 200 mg tablet 100 mg PO DAILY tab 09/26/19 atorvastatin 20 mg tablet 20 mg PO QHS 09/26/19 benazepril 20 mg tablet 20 mg PO DAILY 09/26/19 cholecalciferol (vitamin D3) 50 50 mcg PO DAILY 09/26/19 mcg (2,000 unit) capsule pyridoxine (vitamin B6) 25 mg 25 mg PO DAILY 09/26/19 tablet furosemide 20 mg tablet 20 mg PO DAILY #30 tab 11/14/19 Surgical History: Surgical History (Last Updated 09/25/19 @ 18:08 by Kimberly Blackmon) History of carpal tunnel surgery Z98.890 History of hernia repair Z98.890, Z87.19 Surgical History: herniorrhaphy, carpal tunnel syndrome, vein stripping of the legs Psychiatric History: No pertinent psych hx SURVEY OPERATIONS DIRECTOR History: No pertinent SURVEY OPERATIONS DIRECTOR history Lives: With Family Smoking Status: Never smoker Tobacco Use: Non-smoker Alcohol: None Drugs: None - *Family History Maternal Family History: Family History (Last Reviewed 12/19/19 @ 16:02 by Phong OAKES, PA) Mother CAD (coronary artery disease) CVA (cerebral vascular accident) Father Hypertension Review of Systems Constitutional: Denies: Chills, Fever, Weight Change HEENT: Denies: Head Aches, Sinus Congestion, Sinus Drainage Cardiovascular: Denies: Chest Pain, Palpitations Respiratory: Denies: Cough, Shortness of Breath, Shortness of breath at rest, Sputum production Gastrointestinal: Reports: Diarrhea. Denies: Abdominal Pain, Nausea, Vomiting Genitourinary: Reports: Frequency. Denies: Dysuria, Incontinence, Urgency Gynecological: Reports: Vaginal bleeding Musculoskeletal: Denies: Joint Pain, Joint Tenderness Skin: Denies: Rash, Wounds Neurological: Denies: Numbness, Tingling, Focal weakness Psychiatric: Denies: Anxiety, Depression, Homicidal Ideations, Suicidal Ideations Hematologic/ Lymphatic: Denies: Easy Bruising, Easy Bleeding VTE Information - Inpt Only VTE Present on Admission: No VTE Mechan Device Prophylaxis: SCD's VTE Pharm Prophylaxis ordered?: No Patient Problems: Active and Suspected Problems (Last Updated 09/25/19 @ 18:08 by Kimberly Blackmon) Postmenopausal vaginal bleeding (Acute) Acute on chronic renal failure (Acute) Acute diarrhea (Acute) Thrombocytopenia (Acute) UTI (urinary tract infection) (Acute) - Physical Exam Vitals/I&O's: Vital Signs Temp Pulse Resp BP Pulse Ox 97.8 F 82 18 128/60 H 98 12/19/19 12:57 12/19/19 12:57 12/19/19 12:57 12/19/19 12:57 12/19/19 12:57 Oxygen Delivery Method Room Air Weight: 142 lb 3.17 oz Body Mass Index (BMI) 25.2 Intake and Output for Last 24 Hours 12/17/19 12/18/19 12/19/19 23:59 23:59 23:59 Intake Total 50 / 50 Balance 50 / 50 General: Alert, Oriented x3, Cooperative HEENT: Atraumatic, PERRLA, EOMI, Normocephalic Neck: Supple, No JVD, Negative Carotid Bruits Lungs: Clear to auscultation, Normal air movement Cardiovascular: Regular rate, No murmurs Abdomen: Bowel Sounds Present, Soft, Non Tender Extremities: No edema, Capillary Refill Less than 3 Seconds Skin: No rashes, No breakdown Musculoskeletal: No Tenderness to Palpation of Joints or Extremities Neurological: Cranial nerves II-XII grossly intact Psych/Mental Status: Normal Affect, Appropriate Laboratory Results 12/19/19 10:25: WBC 7.7, RBC 3.09 L, Hgb 8.7 L, Hct 27.7 L, MCV 89.6, MCH 28.2, MCHC 31.4 L, RDW Std Deviation 66.0 H, RDW Coeff of Brody 20.0 H, Plt Count 26 L*, Neut % (Auto) Not Reportable, Absolute Neuts (auto) 2.0, Absolute Lymphs (auto) 4.39, Total Counted 100, Neutrophils % (Manual) 26 L, Lymphocytes % (Manual) 57 H, Monocytes % (Manual) 1, Eosinophils % (Manual) 4, Basophils % (Manual) 1, Metamyelocytes % 3 H, Myelocytes % 4 H, Blast Cells % 4 H*, Diff Path Review May foll, Atypical Lymphocytes 1+, Platelet Estimate MKD DEC, RBC Morphology N CHROM, Microcytosis 2+, Macrocytosis 1+, Acanthocytes (Spur) 2+ 12/19/19 10:25: Sodium 144, Potassium 3.6, Chloride 114 H, Carbon Dioxide 16.0 L, Anion Gap 14, BUN 88 H, Creatinine 7.01 H, Estim Creat Clear Calc 4.94, Est GFR (MDRD) Af Amer 7 L, Est GFR (MDRD) Non-Af 6 L, BUN/Creatinine Ratio 12.6, Glucose 110 H, Calcium 9.7, Total Bilirubin 0.30, AST 37, ALT 23, Alkaline Phosphatase 75, Total Protein 7.1, Albumin 3.6, Globulin 3.5, Albumin/Globulin Ratio 1.0 12/19/19 10:25: Blood Type A POSITIVE, Antibody Screen NEGATIVE 12/19/19 11:15: Urine Color Straw, Urine Clarity Cloudy, Urine pH 5.0, Ur Specific [place] 1.015, Urine Protein 100 H, Urine Glucose (UA) Normal, Urine Ketones Negative, Urine Occult Blood 250 H, Urine Nitrite Positive H, Urine Bilirubin Negative, Urine Urobilinogen Normal, Ur Leukocyte Esterase 500 H, Urine RBC > 100 SEEN, Urine WBC >100 SEEN, Ur Squamous Epith Cells 0-5 SEEN, Ur Renal Epithelial Cell 0-5 SEEN, Urine Bacteria 4+, Fine Granular Casts 0-5 SEEN, Urine Mucus 0 SEEN Current Medications Acetaminophen (Tylenol) 650 mg PO Q6H PRN PRN PRN Reason: Pain Score 1-10/Temp > 100.7 F Amiodarone HCl (Cordarone) 100 mg PO DAILYCM BALTAZAR Atorvastatin Calcium (Lipitor) 20 mg PO QHS [facility] Sodium Chloride () 1,000 mls @ 125 mls/hr IV .Q8H [facility] Ceftriaxone Sodium (Rocephin) 1 gm in 50 mls @ 100 mls/hr IV Q24 [facility] Sodium Chloride () 250 mls @ 15 mls/hr IV .[id number] PRN PRN Reason: Saline Flush Sodium Chloride () 250 mls @ 15 mls/hr IV .[id number] PRN PRN Reason: Additional IVPB Infusion Loperamide HCl (Imodium) 4 mg PO Q4H PRN PRN PRN Reason: DIARRHEA Ondansetron HCl (Zofran) 4 mg IV Q8H PRN PRN PRN Reason: NAUSEA/VOMITING Sodium Chloride () 10 - 40 ml IV UD PRN PRN Reason: SALINE FLUSH Assessment/Plan All Active Problems (Last Updated 09/25/19 @ 18:08 by Kimberly Blackmon) Postmenopausal vaginal bleeding (Acute) Acute on chronic renal failure (Acute) Acute diarrhea (Acute) Thrombocytopenia (Acute) UTI (urinary tract infection) (Acute) Decreased cardiac ejection fraction (Acute) Abnormal echocardiogram (Acute) 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 GEORGE - likely due to dehydration 2/2 daily diarrhea. this AM was first time in 2 weeks without watery stool. C diff negative, enteric panel negative. Provide IV hydration with NS. 2. Acute cystitis - + UA with hx of increased frequency - continue rocephin. follow cx. No WBC elevation or fever. 3. Acute on Chronic anemia - recent vaginal breathing. eliquis stopped. follows dr. Diaz. trend for now no intervention. Amiodarone continued. 4. chronic diastolic CHF - stable at this time 5. ITP - pt of Dr. Diaz - trend platelets. 6. HTN - stable DVT ppx: SCDs This patient was seen by Phong Saba PA-C under the supervision of Doctor Marie.
[2019-12-19] MEDS: 0.9% Normal Saline 1,000 ML 125 ML IV (21:18)
[2019-12-19] MEDS: Atorvastatin Calcium 20 MG Tablet PO (21:19)
[2019-12-19] MEDS: 0.9% Saline Lock 10 ML Syringe IV (21:19)
[2019-12-19 21:27] VITALS: BP 126/60; PULSE 82; RESP 18; TEMP 36.6; O2SAT 96
[2019-12-20] VITALS (11 sets, daily range): BP systolic 96–118; BP diastolic 51–65; PULSE 77–88; RESP 18; TEMP 36.7–37.2; O2SAT 95–98
[2019-12-20] MEDS: 0.9% Normal Saline 1,000 ML 125 ML IV (04:01)
[2019-12-20 06:04] LABS: Hematocrit 22.8 % (37-47); Hemoglobin 7.4 g/dL (12.0-15.0); Mean Corp Hgb Conc 32.5 g/dL (32-36); Mean Corpuscular Hgb 28.5 pg (27.0-32.0); Mean Corpuscular Volume 87.7 fL (81-99); NRBC Flagged by Analyzer 1.4 % (0-5); POSITIVE COUNT YES; POSITIVE MORPHOLOGY YES; RBC Distribution Width CV 19.9 % (11.6-14.6); RBC Distribution Width SD 63.7 fl (35.1-43.9); White Blood Count 6.6 K/mm3 (4.4-11.0)
[2019-12-20 06:08] LABS: Differential Indicated SCAN CRITERIA MET; Platelet Count 22 K/mm3 (150-450)
[2019-12-20 06:31] LABS: Scan Smear per Review Criteria MANUAL DIFF
[2019-12-20 06:32] LABS: Total Cells Counted 100 (MANUAL DIFF)
[2019-12-20 06:41] LABS: Anion Gap 11 (5-15); BUN 77 mg/dL (7-18); BUN/Creat Ratio 12.6 RATIO (10-20); Calcium,Total 8.9 mg/dL (8.5-10.1); Chloride 121 mmol/L (98-107); EST Glomerular Filtration Rate 7 mL/min (>60); Est Glom Filt Rate - Afr Amer 8 mL/min (>60); Estimated Creatinine Clearance 5.68 ml/min; Glucose 92 mg/dL (74-106); Neutrophil-Band 3 % (0-5); Neutrophil-Segmented 39 % (47-70); Potassium 3.8 mmol/L (3.5-5.1); Sodium Level 146 mmol/L (136-145)
[2019-12-20 06:42] LABS: Blast 4 % (0-0); Eosinophil 1 % (0-5); Metamyelocyte 7 % (0-1); Myelocyte 5 (0-0); Promyelocyte 1 (0-0)
[2019-12-20 06:43] LABS: Nucleated Red Bld Cells,Manual 3 % (0-5)
[2019-12-20 06:44] LABS: Atypical Lymphocyte 1+ %; Lymphocyte 37 % (19-41); Monocyte 3 % (0-10); Platelet Estimate MKD DEC (ADEQ)
[2019-12-20 06:46] LABS: Acanthocytes 1+
[2019-12-20 06:48] LABS: Macrocytosis 1+
[2019-12-20 06:49] LABS: Absolute Lymphocyte Count 2.44 X10^3/uL (0.83-4.51); Absolute Neutrophil Count 2.8 X10^3/uL (2.0-7.7); Lymphocyte # 2.44 X10^3/ul (4.0); Neutrophil # 2.76 X10^3/uL (2.7-7.7)
[2019-12-20] MEDS: Dext 5%-0.45% NS 1,000 ML 125 ML IV (07:50)
[2019-12-20] MEDS: Amiodarone 200 MG Tablet 100 MG PO (07:52)
[2019-12-20] MEDS: Ceftriaxone 1 GM/50 ML BAG IV (09:31)
[2019-12-20 12:18] LABS: Pathologist Review Reviewed
[2019-12-20 12:18] LABS: Pathologist Review Reviewed
--- NOTE | 2019-12-20 13:57 | DS.PCM_ITS ---
Discharge Date and Diagnosis - Problem List Patient Problems: Active and Suspected Problems (Last Updated 09/25/19 @ 18:08 by Kimberly Blackmon) Postmenopausal vaginal bleeding (Acute) Acute on chronic renal failure (Acute) Acute diarrhea (Acute) Thrombocytopenia (Acute) UTI (urinary tract infection) (Acute) Date of Admission: 12/19/19 Date of Discharge: 12/20/19 - Primary Discharge Diagnosis Acute Problems: Active Problems (Last Updated 09/25/19 @ 18:08 by Kimberly Blackmon) GEORGE 2/2 dehydration Acute UTI Acute on chronic anemia with recent vaginal bleeding Worsening thrombocytopenia Elevated Blasts unclear etiology Hx ITP Hypernatremia, hyperchloremia pAfib GERD - Secondary Discharge Diagnosis Chronic Problems: Chronic Problems (Last Updated 09/25/19 @ 18:08 by Kimberly Blackmon) Chronic ITP (idiopathic thrombocytopenic purpura) (Chronic) Chronic diastolic heart failure (Chronic) CKD (chronic kidney disease) (Chronic) Atrial fibrillation (Chronic) Gastroesophageal reflux disease (Chronic) Benign essential HTN (Chronic) Hospital Course and Treatment Imaging Results: US/Kidney and Bladder IMPRESSION: There are 2 small right intrarenal calculi. Operations: None Procedures: Blood transfusion Summary of Care Provided: Hospital Course: The patient is a 84 year old F with pmhx of chronic anemia, pAfib with recent eliquis discontinuation due to vaginal bleeding, ITP pt of [facility] oncology, hx GERD and HTN, who presented to the ER for abnormal labs. She was sent by her oncologist Dr. Diaz for worsening renal function. Her creatinine which was most recently 2.66 was found to be above 7. She was called and sent to the hospital and found to have a creatinine of 6.10 with BUN of 77. The patient reported increased urinary frequency and had a UA c/w UTI. She had been having diarrhea for 3 weeks and was felt most likely to have GEORGE 2/2 dehydration. She was admitted to the med surg floor, started on rocephin, and given IV fluids. CHANG-I was held for GEORGE. Discussion was had with oncology who noted increased blast cells which she previously had not had and a severe decline in her platelet count. She has a hx of ITP however in July her platelets have been within normal range They recommended transfer to tertiary facility for further workup. The patient was discharged to [facility] for further care in stable condition. She was transfused with 1 unit PRBC while here. She remains off eliquis due to recent vaginal bleeding. This patient was seen by Phong Saba PA-C under the supervision of Doctor Cynthia. [] Patient Problems: Active and Suspected Problems (Last Updated 09/25/19 @ 18:08 by Kimberly Blackmon) Postmenopausal vaginal bleeding (Acute) Acute on chronic renal failure (Acute) Acute diarrhea (Acute) Thrombocytopenia (Acute) UTI (urinary tract infection) (Acute) - Physical Exam Vitals/I&O's: Vital Signs Temp Pulse Resp BP Pulse Ox 98.6 F 88 18 118/64 98 12/20/19 13:43 12/20/19 13:43 12/20/19 13:43 12/20/19 13:43 12/20/19 13:43 Oxygen Delivery Method Room Air Weight: 142 lb 3.17 oz Body Mass Index (BMI) 25.2 Intake and Output for Last 24 Hours 12/18/19 12/19/19 12/20/19 23:59 23:59 23:59 Intake Total 1450.0 / 1650.0 2354.16 / 2354.16 Balance 1450.0 / 1650.0 2354.16 / 2354.16 General: Alert, Oriented x3, Cooperative HEENT: Atraumatic, PERRLA, EOMI, Normocephalic Neck: Supple, No JVD, Negative Carotid Bruits Lungs: Clear to auscultation, Normal air movement Cardiovascular: Regular rate, No murmurs Abdomen: Bowel Sounds Present, Soft, Non Tender Extremities: No edema, Capillary Refill Less than 3 Seconds Skin: No rashes, No breakdown Musculoskeletal: No Tenderness to Palpation of Joints or Extremities Neurological: Cranial nerves II-XII grossly intact Psych/Mental Status: Normal Affect, Appropriate, Alert and oriented to time, place, person, mood and affect Microbiology Past 72 Hours 12/19/19 11:15 Urine, Clean Catch Urine Culture - Preliminary Presumptive E. coli Laboratory Results 12/19/19 10:25: Diff Path Review Reviewed 12/19/19 10:25: Crossmatch See Detail 12/20/19 05:55: WBC 6.6, RBC 2.60 L, Hgb 7.4 L, Hct 22.8 L, MCV 87.7, MCH 28.5, MCHC 32.5, RDW Std Deviation 63.7 H, RDW Coeff of Brody 19.9 H, Plt Count 22 L*, MPV TNP, Immature Gran % (Auto) LOCAL INTERMODAL TRUCK DRIVER, Neut % (Auto) LOCAL INTERMODAL TRUCK DRIVER, Lymph % (Auto) LOCAL INTERMODAL TRUCK DRIVER, [place] % (Auto) LOCAL INTERMODAL TRUCK DRIVER, Eos % (Auto) LOCAL INTERMODAL TRUCK DRIVER, Baso % (Auto) LOCAL INTERMODAL TRUCK DRIVER, Absolute Neuts (auto) 2.8, Absolute Lymphs (auto) 2.44, Total Counted 100, Neutrophils % (Manual) 39 L, Band Neutrophils % 3, Lymphocytes % (Manual) 37, Monocytes % (Manual) 3, Eosinophils % (Manual) 1, Metamyelocytes % 7 H, Myelocytes % 5 H, Promyelocytes % 1 H, Blast Cells % 4 H*, Nucleated RBC % 1.4, Nucleated RBCs/100 WBC 3, Diff Path Review Reviewed, Atypical Lymphocytes 1+, Platelet Estimate MKD DEC, Macrocytosis 1+, Acanthocytes (Spur) 1+ 12/20/19 05:55: Sodium 146 H, Potassium 3.8, Chloride 121 H, Carbon Dioxide 14.0 L, Anion Gap 11, BUN 77 H, Creatinine 6.10 H, Estim Creat Clear Calc 5.68, Est GFR (MDRD) Af Amer 8 L, Est GFR (MDRD) Non-Af 7 L, BUN/Creatinine Ratio 12.6, Glucose 92, Calcium 8.9 Current Medications Acetaminophen (Tylenol) 650 mg PO Q6H PRN PRN PRN Reason: Pain Score 1-10/Temp > 100.7 F Amiodarone HCl (Cordarone) 100 mg PO DAILYCM [facility] Last Admin: 12/20/19 07:52 Dose: 100 mg Documented by: Atorvastatin Calcium (Lipitor) 20 mg PO QHS [facility] Last Admin: 12/19/19 21:19 Dose: 20 mg Documented by: Ceftriaxone Sodium (Rocephin) 1 gm in 50 mls @ 100 mls/hr IV Q24 [facility] Last Infusion: 12/20/19 10:05 Dose: Infused Documented by: Sodium Chloride () 250 mls @ 15 mls/hr IV .[id number] PRN PRN Reason: Saline Flush Sodium Chloride () 250 mls @ 15 mls/hr IV .[id number] PRN PRN Reason: Additional IVPB Infusion Dextrose/Sodium Chloride () 1,000 mls @ 125 mls/hr IV .Q8H BALTAZAR Last Infusion: 12/20/19 10:32 Dose: 0 mls/hr Documented by: Loperamide HCl (Imodium) 4 mg PO Q4H PRN PRN PRN Reason: DIARRHEA Nutritional Formula (Lactose Free) (Ensure Enlive) 120 ml PO 4X/DAY BALTAZAR Ondansetron HCl (Zofran) 4 mg IV Q8H PRN PRN PRN Reason: NAUSEA/VOMITING Sodium Chloride () 10 - 40 ml IV UD PRN PRN Reason: SALINE FLUSH Last Admin: 12/19/19 21:19 Dose: 10 ml Documented by: Home Medications: Medications to take at Discharge amiodarone 200 mg tablet 100 mg PO DAILY tab 09/26/19 atorvastatin 20 mg tablet 20 mg PO QHS 09/26/19 benazepril 20 mg tablet 20 mg PO DAILY 09/26/19 cholecalciferol (vitamin D3) 50 mcg (2,000 unit) capsule 50 mcg PO DAILY 09/26/19 pyridoxine (vitamin B6) 25 mg tablet 25 mg PO DAILY 09/26/19 furosemide 20 mg tablet 20 mg PO DAILY #30 tab 11/14/19 Primary Care Physician: Ayden Fritz MD [Primary Care Provider] - Disposition: Acute care Hospital Minutes spent on discharge:: 35 Patient Condition:: Stable Medical Necessity - Tobacco Use Smoking Status: Never smoker Tobacco Use: Non-smoker Meaningful Use Info Meaningful Use Diagnoses (Choose all that apply): None applicable
== END 2019-12-20 15:10 | disposition short-term general hospital (02) | DRG 683 ==
LOC: ED 11:17 → MS3 12:49
PROVIDERS: Admitting Provider Internal Medicine; Emergency Provider Emergency Medicine; PCP Family Medicine; Visit Provider Internal Medicine
DX: N17.9 Acute kidney failure, unspecified (principal); I13.0 Hypertensive heart and chronic kidney disease with heart failure and stage 1 through stage 4 chronic kidney disease, or unspecified chronic kidney disease; I50.32 Chronic diastolic (congestive) heart failure; D69.3 Immune thrombocytopenic purpura; I45.2 Bifascicular block; N30.00 Acute cystitis without hematuria; E87.0 Hyperosmolality and hypernatremia; I48.20 Chronic atrial fibrillation, unspecified; D62 Acute posthemorrhagic anemia; K92.1 Melena; R19.7 Diarrhea, unspecified; E87.8 Other disorders of electrolyte and fluid balance, not elsewhere classified; N18.9 Chronic kidney disease, unspecified; N95.0 Postmenopausal bleeding; K21.9 Gastro-esophageal reflux disease without esophagitis; E78.5 Hyperlipidemia, unspecified; Z86.73 Personal history of transient ischemic attack (TIA), and cerebral infarction without residual deficits; Z79.899 Other long term (current) drug therapy
CPT/HCPCS: 36415; 76770; 80048; 80053; 81001; 85025; 86850; 86900; 86901; 86920; 87086; 87088; 87186; 87493; 87506; 99284; J7030; J7040; P9016; A4216; J7799